=== PATIENT | female | born 1995 | race Caucasian/White ===

== ENCOUNTER 2016-09-19 00:35 | Emergency (ER) | payer OTHER ==
[~2016-09-19] VITALS: Ht 162.6 cm; Wt 63.5 kg
[~2016-09-19 00:35] MED LIST: BCPILLS PO
[2016-09-19 00:40] VITALS: TEMP 36.9; Ht 162.6 cm; Wt 63.5 kg
[2016-09-19] MEDS ORDERED: NORCO 5/325MG HOME PACK PO ONE (01:30)
[2016-09-19 01:43] VITALS: BP 116/56; PULSE 87; O2SAT 98
--- NOTE | 2016-09-19 06:22 | EMERGENCY ROOM VISIT NOTE ---
History First contact with patient: 01:06 Chief Complaint: INFECTION Stated Complaint: INFECTION Nursing Triage Summary: c/o " cyst " in right axilla seen by [facility] and had one drained and surgery on another.todday c/o pain and sweling in area. History of Present Illness The patient is a 21 year old female who presents to the Emergency Room with complaints of pain in her right axilla that is worsening over the past day. The patient has had 3 separate abscesses in her right axilla in the past 2 months. The patient states that she is traveling home in about 12 hours, or she has an appointment with a surgeon to evaluate her for possible axillary excision. The patient states that she began having worsening pain in the area that she has had several abscesses. She does have Bactrim that she began, but states that she has not had any relief of her discomfort. She is unsure if she needs another incision and drainage at this point. She is not diabetic, but states that she has had positive MRSA swabs. She rates her discomfort a 7/10. Review of Systems More than 10 systems were reviewed and otherwise negative with the exception of history of present illness. Past Medical/Surgical History Medical Problems: (1) Asthma Family History FH: gallbladder disease FH: heart disease Hypertension Social History Smoking Status: Never Smoker Alcohol Use: occasionally Housing Status: lives with roommate Occupation Status: employed Current/Historical Medications Scheduled Control Pills ( Control Pills), 1 TAB PO DAILY Allergies Coded Allergies: Oxycodone (Unverified Adverse Reaction, Intermediate, SHAKING, 09/19/16) Physical Exam Vital Signs Date Time Temp Pulse Resp B/P Pulse Ox O2 Delivery O2 Flow Rate FiO2 09/19/16 01:43 87 18 116/56 98 Room Air 09/19/16 00:40 36.9 89 20 144/76 94 Room Air Pain Rating (0-10): 3.0 Physical Exam VITALS: Vitals are noted on the nurse's note and reviewed by myself. Vital signs stable. GENERAL: Well-developed, well-nourished, white female, who is in no acute distress and resting comfortably. Patient is cooperative with the examination. HEAD: Normocephalic atraumatic. HEART: Regular rate and rhythm without murmurs gallops or rubs. LUNGS: Clear to auscultation bilaterally without wheezes, rales or rhonchi. No retractions or accessory muscle use SKIN: The skin was with a small area of tenderness along the superior aspect of the right axilla. There is no obvious abscess or gross cellulitis. Medical Decision & Procedures Medications Administered Medications (Trade) Dose Ordered Sig/Dayanna Route Start Time Stop Time Status Last Admin Dose Admin Acetaminophen/ Hydrocodone Bitart ([place] 5/325mg Home Pack) 1 homepack UD ONCE PO 09/19/16 01:30 09/19/16 01:31 DC 09/19/16 01:39 1 HOMEPACK ED Course Physical exam and history were performed. Nursing notes and EMR were reviewed. Patient appears to have a palpable area of tenderness in her right axilla. She does not have obvious abscess that needs incised and drained at this point. She has an appointment later today with a surgeon, and she needs to keep this appointment. She has Bactrim available to her, and I feel it is important that she continue this medication. I will give her a home pack of Vicodin to assist with pain control until she can be seen by her surgeon. The patient was otherwise invited back to the ER with any new, worsening, or concerning symptoms. She voiced understanding and rated her discomfort a 2/10 at the time of departure. The chart was completed utilizing [employer] Speech Voice Recognition Software. Grammatical errors, random word insertions, pronoun errors, and incomplete sentences are an occasional consequence of this system due to software limitations, ambient noise, and hardware issues. Any formal questions or concerns about the content, text, or information contained within the body of this dictation should be directly addressed to the provider for clarification. . Medical Decision Differential diagnosis: Etiologies such as cellulitis, abscess, MRSA infection, DVT, necrotizing fasciitis, dermatitis, drug eruption, as well as others were entertained.. Impression Primary Impression: Pain in right axilla Departure Information Dispostion Home / Self-Care Condition GOOD Forms HOME CARE DOCUMENTATION FORM, IMPORTANT VISIT INFORMATION Patient Instructions [facility] Additional Instructions You were seen and evaluated today on an emergency basis only. This is not a substitute for, or an effort to provide, complete comprehensive medical care. It is not possible to recognize and treat all injuries or illnesses in a single emergency department visit. For this reason it is recommended that you followup with your surgeon later today as scheduled. [place] (hydrocodone/acetaminophen) 5/325 mg (homepack) every 6 hours as needed for worsening breakthrough pain. Do not drink or drive on [place]. This medication will likely make you tired. Do not take [place] and Tylenol at the same time as both contain acetaminophen. [place] may cause constipation. You may wish to take an [id number] stool softener like Colace if this occurs. Continue Bactrim as prescribed You are welcome to return to the emergency department anytime with new, worsening, or concerning symptoms.
== END 2016-09-19 01:47 | disposition home or self-care (01) ==
LOC: C.EDB 00:37
DX: M79.621 Pain in right upper arm (principal); J45.909 Unspecified asthma, uncomplicated; Z83.79 Family history of other diseases of the digestive system; Z82.49 Family history of ischemic heart disease and other diseases of the circulatory system